=== PATIENT | male | born 1955 | race African-American/Black ===

== ENCOUNTER 2016-07-21 20:32 | Observation (INO) | payer MEDICARE ==
--- NOTE | ~2016-07-21 | DS ---
Discharge Summary [facility] [address] [place]. [address] NAME: MAR VALDIVIA : 57 STATUS : DIS Delia PAT#: [id number] AGE: 60 ADM/REG DATE : 07/21/16 MR#: [id number] REPORT SERV DATE: 07/24/16 DICTATED BY: DATE: REPORT STATUS : Draft TRANSCRIBED BY: MODL DATE: 07/22/16 ADMISSION DATE: 07/21/2016 DISCHARGE DATE: 07/22/2016 DISCHARGE DIAGNOSES: 1. Chronic obstructive pulmonary disease with chronic hypoxia suspicious for acute exacerbation. 2. Obstructive sleep apnea, chronic. 3. Anxiety, chronic. CONSULTATIONS: None. PERTINENT TESTS AND PROCEDURES: 1. Chest x-ray, 07/21/2016, impression: Stable COPD changes in the lungs. No airspace consolidation, pleural fluid collection, or pneumothorax is seen. 2. Chest x-ray, 07/22/2016, impression: Hyperinflated lungs. No segmental consolidation, effusion, or pneumothorax. Severe COPD without focal airspace disease. HOSPITAL COURSE: Please refer to history and physical dictated by Dr. Mikie Finnegan on 07/22/2016 for complete details pertaining to the patient's initial presentation upon admission and health history. Briefly, the patient is a 60-year-old male who is under the outpatient care of Dr. Turner, [employer] in [place], [place], and Dr. Monteiro, [employer] at [facility], for treatment of chronic obstructive pulmonary disease with chronic hypoxic respiratory failure. The patient presented to the emergency department on 07/21/2016 with complaints of increasing shortness of breath from baseline. The patient also complained of increased mucous production. The patient was admitted for evaluation and treatment of chronic obstructive pulmonary disease exacerbation in the setting of chronic hypoxic respiratory failure. 1. COPD with chronic respiratory failure/hypoxia. The patient was admitted for concern of acute exacerbation secondary to complaints the patient's complaints of increased mucous production and increased shortness of breath from baseline. The patient was started on doxycycline 100 mg p.o. twice daily in addition to methylprednisolone 20 mg IV twice daily. Home medications to Advair, albuterol, metered dose inhaler, Proventil, Mucinex, Spiriva, and Singulair were continued. DuoNeb every six hours scheduled was also added. The patient was also provided with a CPAP machine for nighttime use. The patient responded well to these initial treatments to include nebulizers, steroids, antibiotics, and CPAP. The patient will be discharged home with a prescription for doxycycline for four more days to complete a five-day course of antibiotic therapy, and a prescription for prednisone 40 mg p.o. daily x5 days and then resumption of chronic home dose of prednisone 2.5 mg p.o. daily. The patient is also seen by Dr. Monteiro, [employer] at [facility] in [place]. The patient's next visit is scheduled for this , 07/24/2016. Per patient report, he is currently being evaluated for Discharge Summary [address] [address] NAME: MAR VALDIVIA : 57 STATUS : DIS Delia PAT#: [id number] AGE: 60 ADM/REG DATE : 07/21/16 MR#: [id number] REPORT SERV DATE: 07/24/16 DICTATED BY: DATE: REPORT STATUS : Draft TRANSCRIBED BY: SHARAD DATE: 07/22/16 possible lung transplantation in the future. 2. Obstructive sleep apnea, chronic. The patient is a chronic CPAP dependent. Per patient report, his CPAP machine malfunctioned 24 hours prior to this admission. The patient believes that this may have contributed to his respiratory distress. Social Work was consulted regarding need for CPAP repair before discharge home. The patient's family assisted with this need and delivered CPAP to home health provider. Required repairs were made and CPAP was delivered back to hospital prior to discharge to ensure it was working to the patient's satisfaction. 3. Chronic anxiety. Continue home dose of BuSpar, Lexapro, and Ativan. DISCHARGE CONDITION: At the time of discharge, the patient is hemodynamically stable and he has returned to baseline state of health. DISCHARGE DIET: Regular diet as tolerated. DISCHARGE MEDICATIONS: 1. Coreg 3.125 mg tablet p.o. twice daily. 2. Vitamin D 2000 units p.o. every morning. 3. Doxycycline 100 mg p.o. twice daily x4 days to complete a five-day total therapy. 4. Lexapro 20 mg tablet p.o. daily. 5. Flonase nasal spray one spray both nostrils p.o. daily. 6. Guaifenesin 400 mg tablet p.o. four times daily as needed. This medication to be scheduled x7 days and then resume p.r.n. 7. Singulair 10 mg tablet p.o. daily. 8. Prilosec 40 mg tablet p.o. daily. 9. Potassium chloride 10 mEq p.o. daily. 10.Demadex 10 mg tablet p.o. daily. 11.Prednisone 40 mg tablet p.o. x5 days and resume home chronic dose of prednisone 2.5 mg tablet p.o. daily. 12.ProAir metered-dose inhaler 1-2 puffs inhaled every four hours as needed. 13.Advair 1 puff inhaled twice daily. 14.Tylenol 325 mg tablet, take 650 mg every four hours as needed. 15.BuSpar 5 to 10 mg p.o. twice daily as needed for anxiety. 16.Colace 100 mg p.o. twice daily as needed. 17.Ativan 1 mg tablet p.o. daily as needed for anxiety. 18.Proventil 1 nebulizer treatment four times daily as needed. 19.Spiriva 1 puff inhaled twice daily. RN to verify b.i.d. dosing with the patient before discharge. DISCHARGE INSTRUCTIONS: 1. Follow up with Dr. Monteiro of Pulmonology at [facility] in [place] 07/24/2016 as scheduled. 2. Follow up with Dr. Turner of Pulmonology [place], [place], per routine schedule. 3. The patient was instructed to take all home medications as prescribed and to resume nightly use of CPAP without interruption. The patient was instructed to return to the ER for any acute onset of fever 100.4 or greater lasting more than one hour increased Discharge Summary [address] [address] NAME: MAR VALDIVIA : 57 STATUS : DIS Delia PAT#: [id number] AGE: 60 ADM/REG DATE : 07/21/16 MR#: [id number] REPORT SERV DATE: 07/24/16 DICTATED BY: DATE: REPORT STATUS : Draft TRANSCRIBED BY: MODL DATE: 07/22/16 shortness of breath from baseline chills, sweats, syncopal, near syncopal episodes, chest pain, or any other health concerns that are deviations from his baseline status at the time of this discharge. Primary care physician is Dr. Velasco. PRIMARY PULMONOLOGISTS: 1. Dr. Monteiro of [facility]. 2. Dr. Turner of [place], [place]. HEMAH/WANDYL Angela Burton NP-C / [id number] CC: MD Arvin Barry M.D. Michael T Czarnecki, M.D. Ivan Robbins, MD
--- NOTE | ~2016-07-21 | HP ---
History And Physical [address] [address] NAME: MAR VALDIVIA : 57 STATUS : ADM Delia PAT#: [id number] AGE: 60 ADM/REG DATE : 07/21/16 MR#: [id number] REPORT SERV DATE: 07/22/16 DICTATED BY: RODRIGO FINNEGAN DATE: 07/22/16 REPORT STATUS : Draft TRANSCRIBED BY: MODL DATE: 07/22/16 DATE OF ADMISSION: 07/21/2016 CHIEF COMPLAINT: This 60-year-old male presenting with shortness of breath. HISTORY OF PRESENTING ILLNESS: The patient's history was obtained through careful interview with the patient, coupled with review of [facility] and medical records. The patient states that for several days, he has been having increasing shortness of breath. He finally went to his primary care physician earlier on the day of admission. By the night time, the patient was feeling "distress" from his breathing problems and developed what he describes as a "panic attack." He describes a cough, increasingly productive of a thick mucus. He describes chest discomfort, a sharp quality at the base of his lungs, 5/10 severity. He also has a sore throat. He has had cold feet, lightheadedness. No fevers or chills. Also of concern, the patient states that his CPAP inexplicably stopped working on the night leading up to admission, which he thinks contributed to his "panic attack." REVIEW OF SYSTEMS: Otherwise, complete review of systems was obtained and was negative. PAST MEDICAL HISTORY: 1. COPD oxygen dependent. 2. Pneumonia. 3. Obstructive sleep apnea, on CPAP. 4. Coronary artery disease, status post stent placement. 5. Hypertension. 6. Pulmonary hypertension. PAST SURGICAL HISTORY: 1. Right hip surgery. 2. Hernia repair. 3. Left orchiectomy. ALLERGIES: NEOSPORIN. SOCIAL HISTORY: Quit smoking. Continues to drink alcohol rarely and socially. He is single and lives alone. . Has one daughter, who lives in [place]. He has grandchildren. He has a sister, who lives locally. 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 He still History And Physical [address] 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 FAMILY HISTORY: Diabetes and heart disease. CURRENT MEDICATIONS: Albuterol inhaler, BuSpar 5 to 10 mg p.o. b.i.d. as needed, Coreg 3.125 mg p.o. b.i.d., vitamin D, Lexapro 20 mg daily, Flonase, Advair inhaled twice a day, guaifenesin, Ativan 1 mg p.o. daily as needed, Singulair 10 mg daily, Prilosec 40 mg daily, potassium 10 mEq p.o. daily, prednisone 2.5 mg p.o. daily maintenance, Spiriva inhaled p.o. b.i.d., and Demadex 10 mg p.o. daily. PHYSICAL EXAMINATION: VITAL SIGNS: Temperature 97.9, pulse 95, blood pressure 106/72, respiratory rate 20, and O2 saturation 98% on 6 L nasal cannula. GENERAL: An ill-appearing male, in evidence of distress secondary to shortness of breath. HEENT: Pupils equal, round, and reactive to light. No conjunctival pallor. No scleral icterus. Nares are patent. Oropharynx is clear of obstruction. Moist mucous membranes. NECK: Trachea midline. No thyromegaly. LYMPH: No cervical lymphadenopathy. No supraclavicular lymphadenopathy. RESPIRATORY: Inspiratory and expiratory wheezes. A very "tight" exam with prolonged expiratory phase. No focal egophony. No dullness to percussion to suggest effusions. The patient has a labored respiratory effort. CARDIOVASCULAR: Regular rate and rhythm. No murmurs, rubs, or gallops. EXTREMITY: No extremity edema is appreciated. ABDOMEN: Soft, nontender, nondistended. Normal bowel sounds auscultated throughout. No organomegaly. DERMATOLOGICAL: Warm and dry extremities. No pallor. No cyanosis. PSYCHIATRIC: Normal affect. Good mood. Alert and oriented x3. LABORATORY DATA: ABG demonstrates pH of 7.34, pCO2 of 61, PaO2 of 94, and a bicarb of 33. White blood cell count 7.3, hemoglobin 14, hematocrit 42, and platelets 264. Sodium 139, potassium 3.7, chloride 100, bicarb 34, BUN 10, creatinine 0.73, and glucose 96. Troponin negative. INR 1.0. STUDIES: 1. Chest x-ray by my own evaluation shows chronic COPD changes, but no acute abnormality. 2. EKG by my own evaluation shows sinus rhythm, left axis deviation. ASSESSMENT AND PLAN: 1. Chronic obstructive pulmonary disease exacerbation. Placed on IV Solu-Medrol, duo nebulizers, doxycycline. 2. Obstructive sleep apnea. Continue CPAP nightly including tonight. 3. Pulmonary hypertension. Initially, I have made the patient in observation status as he seems to be recovering well to initial treatment with duo nebulizers and steroids and hopefully, he can respond within about 24 hour period of time. History And Physical [address] [address] NAME: MAR VALDIVIA : 57 STATUS : ADM Delia PAT#: [id number] AGE: 60 ADM/REG DATE : 07/21/16 MR#: [id number] REPORT SERV DATE: 07/22/16 DICTATED BY: RODRIGO FINNEGAN DATE: 07/22/16 REPORT STATUS : Draft TRANSCRIBED BY: SHARAD DATE: 07/22/16 ELLEN/SHARAD Rodrigo Finnegan M.D. / [id number] CC: MD Arvin Barry M.D.
[2016-07-21 19:39] LABS: BE (BASE EXCESS) 5.1 MEQ/L (0 +/- 2.5); CARBOXYHEMOGLOBIN 1.5 % (0-3); HCO3 (ACTUAL BICARBONATE) 32.8 MEQ/L (23-27); HEMOBLOGIN CONTENT 14.7 G/DL (14-18); INSTRUMENT SERIAL # 8087; METHEMOGLOBIN 0.4 % (0-3); PCO2 (CO2 TENSION) 61 MMHG (35-45); PO2 (O2 TENSION) 95 MMHG (79-93); pH 7.35 (7.37-7.43)
[2016-07-21 19:40] LABS: DEVICE NC; O2 CONTENT 19.8 VOL% (18-24); SAMPLE Arterial
[2016-07-21 20:06] LABS: BASOPHILS 0.1 %; BASOPHILS ABSOLUTE 0.01 10/3/uL (0.0-0.16); EOSINOPHILS 0.5 %; EOSINOPHILS ABSOLUTE 0.04 10/3/uL (0.0-0.53); ER CBC TAT 0 Hrs 10 Mins; HEMATOCRIT 42.4 % (40.0-51.0); HEMOGLOBIN 14.1 g/dL (13.6-17.8); IMMATURE GRANULOCYTES 0.1 %; IMMATURE GRANULOCYTES ABSOLUTE 0.01 10/3/uL (0.0-0.11); LYMPHOCYTES 11.4 %; LYMPHOCYTES ABSOLUTE 0.83 10/3/uL (0.67-4.30); MEAN CORPUS HGB CONC 33.3 g/dL (32.0-36.0); MEAN CORPUSCULAR HEMOGLOB 29.7 pg (26.0-34.0); MEAN CORPUSCULAR VOLUME 89.3 fL (80-100); MEAN PLATELET VOLUME 9.3 fL (9.2-13.0); MONOCYTES 1.8 %; MONOCYTES ABSOLUTE 0.13 10/3/uL (0.21-1.20); NEUTROPHILS 86.1 %; NEUTROPHILS ABSOLUTE 6.27 10/3/uL (2.02-8.40); RBC DISTRIBUTION WIDTH 12.2 % (12.0-16.0); RED CELL COUNT 4.75 10/6/uL (4.7-6.1); WHITE BLOOD CELLS 7.3 10/3/uL (4.5-10.5)
[2016-07-21 20:08] LABS: MANUAL DIFF NO %; PLATELET COUNT 264 10/3/uL (150-400)
[2016-07-21 20:20] LABS: PARTIAL THROMBO TIME 30.8 SEC (22.5-37.2); PROTIME (NOT ORD) 12.9 SEC (12.0-14.5)
[2016-07-21 20:22] LABS: CHEST PAIN PROFILE TAT 0 Hrs 26 Mins; CHLORIDE, SERUM 100 MMOL/L (96-112); CO2 (CARBON DIOXIDE) 34 MMOL/L (24-34); CREATININE 0.73 MG/DL (0.70-1.30); GFR AFRICAN AMERICAN 118 ML/MIN (>=60); GFR NON AFRICAN AMERICAN 102 ML/MIN (>=60); GLUCOSE, SERUM 96 MG/DL (60-99); POTASSIUM, SERUM 3.7 MMOL/L (3.5-5.3); SODIUM, SERUM 139 MMOL/L (135-148); TROPONIN I <0.02 NG/ML (<0.05)
[2016-07-21 20:26] LABS: BUN (BLOOD UREA NITROGEN) 10 MG/DL (6-23)
[~2016-07-21 20:32] MED LIST: ACET500CAP PO; ACETSUP650 PR; ADOXA100 MG PO; ADVAIR INH; ADVAIR250 INH; ASAB PO; ATV1 PO; BEN25 PO; CENTRUM TAB1 TAB PO; CITRACAL PO; COREG3 PO; COUMADIN10 MG PO; DEMA10T PO; DYMISTA NASAL S23 GM NAS; GAVISCO2 PO; HALF81 PO; HUMI PO; KLOR-CON 1010 MEQ PO; KLOR-CON M1010 MEQ PO; LEVAQUIN750 MG PO; LEXAPRO10 PO; LIPITOR40 PO; MELA3 PO; MUCINEX1200 MG PO; MUCINEX600 MG PO; MULTIVIT/MIN PO; NASACORTAQ NAS; NORCO1 TA1 PO; NORCO1 TAB PO; OMNICEF300 PO; P10 PO; P20 PO; P5 PO; PR25 PO; PREDNISONE PO; PREDNISONE2.5 MG PO; PRILOSEC40 MG PO; PROAIR HFA INH; PROTONIX PO; PROVENTSOL INH; Prednisone; SENTAB PO; SINGULAIR1 PO; SPIRIVA INH; STERAPRED DS10 MG; STERAPRED DS10 MG PO; STERIOD INJECTION IM; SYMBICORT 160/41 INH INH; T PO; TORATAB PO; TRIMETHOPRIM; V5 PO; VITAMIN D PO; WELLXL300 PO; ZANTAC 150 PO; ZYRTEC ALLGY10 MG PO; [UNRECOGNIZED DRUG - OTHER]
[2016-07-21] MEDS ORDERED: SINGULAIR1 PO (21:20)
[2016-07-21] MEDS ORDERED: BUSPAR5 PO (21:20)
[2016-07-21] MEDS ORDERED: ATV1 PO (21:26)
[2016-07-21] MEDS ORDERED: LEXAPRO20 PO (21:26)
[2016-07-21] MEDS ORDERED: COREG3 PO (21:26)
[2016-07-21] MEDS ORDERED: PROVENTSOL INH (21:27)
[2016-07-21] MEDS ORDERED: SPIRIVA RESPIMAT INH (21:27)
[2016-07-21] MEDS ORDERED: PROAIR HFA INH (21:27)
[2016-07-21] MEDS ORDERED: ADVAIR INH (21:28)
[2016-07-21] MEDS ORDERED: KDUR10 PO (21:28)
[2016-07-21] MEDS ORDERED: DEMA10T PO (21:28)
[2016-07-21] MEDS ORDERED: PREDNISONE2.5 MG PO (21:29)
[2016-07-21] MEDS ORDERED: VITAMIN D2000 UNIT PO (21:29)
[2016-07-21] MEDS ORDERED: FENESIN IR400 MG PO (21:30)
[2016-07-21] MEDS ORDERED: FLONASE NAS (21:30)
[2016-07-21] MEDS ORDERED: PRILOSEC40 MG PO (21:30)
[2016-07-22 00:25] LABS: INFLUENZA A SCREEN NEGATIVE (NEGATIVE); INFLUENZA B SCREEN NEGATIVE (NEGATIVE)
[2016-07-22 05:51] LABS: BASOPHILS 0.2 %; BASOPHILS ABSOLUTE 0.01 10/3/uL (0.0-0.16); EOSINOPHILS 0 %; HEMATOCRIT 42.8 % (40.0-51.0); HEMOGLOBIN 14.3 g/dL (13.6-17.8); IMMATURE GRANULOCYTES 0.2 %; IMMATURE GRANULOCYTES ABSOLUTE 0.01 10/3/uL (0.0-0.11); LYMPHOCYTES 14.2 %; LYMPHOCYTES ABSOLUTE 0.92 10/3/uL (0.67-4.30); MEAN CORPUS HGB CONC 33.4 g/dL (32.0-36.0); MEAN CORPUSCULAR VOLUME 89.7 fL (80-100); MEAN PLATELET VOLUME 9.6 fL (9.2-13.0); MONOCYTES 0.6 %; MONOCYTES ABSOLUTE 0.04 10/3/uL (0.21-1.20); NEUTROPHILS 84.8 %; NEUTROPHILS ABSOLUTE 5.49 10/3/uL (2.02-8.40); PLATELET COUNT 298 10/3/uL (150-400); RBC DISTRIBUTION WIDTH 12.1 % (12.0-16.0); RED CELL COUNT 4.77 10/6/uL (4.7-6.1); WHITE BLOOD CELLS 6.5 10/3/uL (4.5-10.5)
[2016-07-22 05:53] LABS: MANUAL DIFF NO %
[2016-07-22 05:56] LABS: PARTIAL THROMBO TIME 30.8 SEC (22.5-37.2); PROTIME (NOT ORD) 13.2 SEC (12.0-14.5)
[2016-07-22 06:26] LABS: CALCIUM, SERUM 8.9 MG/DL (8.5-10.4); CHLORIDE, SERUM 101 MMOL/L (96-112); CO2 (CARBON DIOXIDE) 30 MMOL/L (24-34); CREATININE 0.74 MG/DL (0.70-1.30); GFR AFRICAN AMERICAN 117 ML/MIN (>=60); GFR NON AFRICAN AMERICAN 101 ML/MIN (>=60); SGOT(AST) 16 U/L (5-40); SGPT(ALT) 18 U/L (5-65); SODIUM, SERUM 141 MMOL/L (135-148); TOTAL PROTEIN 6.7 G/DL (6.0-8.5); TROPONIN I <0.02 NG/ML (<0.05)
[2016-07-22 06:27] LABS: A/G RATIO 1.3 (0.7-1.9); ALBUMIN 3.8 G/DL (3.5-5.0); ALKALINE PHOSPHATASE 55 U/L (45-117); BUN (BLOOD UREA NITROGEN) 16 MG/DL (6-23); GLOBULIN 2.9 G/DL (2.5-4.1); GLUCOSE, SERUM 121 MG/DL (60-99); POTASSIUM, SERUM 4.5 MMOL/L (3.5-5.3); TOTAL BILIRUBIN 0.9 MG/DL (0-1.2); ULTRASENSITIVE TSH 0.203 MCIU/ML (0.358-3.740)
[2016-07-22 07:16] LABS: PROCALCITONIN <0.05 ng/mL (<0.5)
[2016-07-22] MEDS ORDERED: VIBRATAB100 MG PO (18:49)
[2016-07-22] MEDS ORDERED: P20 PO (18:50)
[2016-07-22] MEDS ORDERED: T PO (19:02)
[2016-07-22] MEDS ORDERED: DSS PO (19:03)
[2017-01-15] MEDS ORDERED: ASAB PO (03:07)
[2017-01-15] MEDS ORDERED: COREG3 PO (03:10)
[2017-01-15] MEDS ORDERED: LEXAPRO20 PEG (03:10)
[2017-01-15] MEDS ORDERED: ZYRTEC ALLGY10 MG PO (03:11)
[2017-01-15] MEDS ORDERED: SILTUSSIN100 MG/5 M PO (03:11)
[2017-01-15] MEDS ORDERED: FLORASTOR250 MG PO (03:12)
[2017-01-15] MEDS ORDERED: MIRALAX POWDER1 PKT PO (03:12)
[2017-01-15] MEDS ORDERED: K-TABS10 MEQ PO (03:12)
[2017-01-15] MEDS ORDERED: PROTONIX PO (03:12)
[2017-01-15] MEDS ORDERED: DEMA10T PO (03:13)
[2017-01-15] MEDS ORDERED: CYANO1000T PO (03:13)
[2017-01-15] MEDS ORDERED: FLONASE NAS (03:13)
[2017-01-15] MEDS ORDERED: P10 PO (03:13)
[2017-01-15] MEDS ORDERED: MULTIVIT/MIN PO (03:14)
[2017-01-15] MEDS ORDERED: SPIRIVA INH (03:15)
[2017-01-15] MEDS ORDERED: LEVAQUIN750 MG PO (03:15)
[2017-01-15] MEDS ORDERED: DULERA 200 MCG/13 GM INH (03:16)
[2017-01-15] MEDS ORDERED: DUONEB INH (03:16)
[2017-01-15] MEDS ORDERED: NASACORTAQ NAS (03:20)
== END 2016-07-22 21:26 | disposition home or self-care (01) ==
LOC: ER 20:32 → 4EA 21:25
PROVIDERS: Hospitalist; Specialist
DX: J44.9 Chronic obstructive pulmonary disease, unspecified (principal); G47.33 Obstructive sleep apnea (adult) (pediatric); I27.2 Other secondary pulmonary hypertension; J18.9 Pneumonia, unspecified organism; I25.10 Atherosclerotic heart disease of native coronary artery without angina pectoris; F41.9 Anxiety disorder, unspecified; I10 Essential (primary) hypertension; Z23 Encounter for immunization; Z98.890 Other specified postprocedural states; Z90.79 Acquired absence of other genital organ(s); Z88.1 Allergy status to other antibiotic agents; Z79.891 Long term (current) use of opiate analgesic; Z82.49 Family history of ischemic heart disease and other diseases of the circulatory system; Z83.3 Family history of diabetes mellitus; Z79.899 Other long term (current) drug therapy; Z79.52 Long term (current) use of systemic steroids; Z96.641 Presence of right artificial hip joint
CPT/HCPCS: 71010; 80048; 80053; 82805; 83735; 83880; 84145; 84443; 84484; 85025; 85610; 85730; 86710; 87449; 87804; 90686; 93005; 94640; 94660; 96372; 96374; 96376; 99285; A9270-GY; G0008; G0378; J2920

== ENCOUNTER 2016-12-05 15:21 | Inpatient (IN) | payer MEDICARE, OTHER ==
--- NOTE | ~2016-12-05 | DS ---
Discharge Summary [facility] [address] [place]. [address] NAME: MAR VALDIVIA : 57 STATUS : DIS IN PAT#: [id number] AGE: 61 ADM/REG DATE : 12/05/16 MR#: [id number] REPORT SERV DATE: 12/20/16 DICTATED BY: TOD ALBARADO DATE: 12/19/16 REPORT STATUS : Draft TRANSCRIBED BY: MODL DATE: 12/19/16 ADMISSION DATE: 12/05/2016 DISCHARGE DATE: 12/19/2016 REASON FOR ADMISSION: This is a 61-year-old male with end-stage COPD who was admitted for shortness of breath. DISCHARGE DIAGNOSES: 1. End-stage chronic obstructive pulmonary disease dependent on trilogy ventilation. 2. Pulmonary hypertension. 3. Coronary artery disease, status post percutaneous coronary intervention. HOSPITAL COURSE: Please see admission H and P from Dr. Ghulam Kahn on 12/06/2016 and interim discharge summary from Dr. Ghulam Kahn on 12/08/2016 and interim discharge summary from Dr. Arvin Hernandez on 12/14/2016 for full details on admission and hospital stay. I picked up the patient on the 12/17/2016. The patient was awaiting rehab placement, as he is trying to get on the transplant list at [facility] as he is seeing Dr. Andrade Monteiro there, but they want him to improve his physical capacity where he can walk 750 feet, and so therefore, it was felt that the only way for him to accomplish that is to go to inpatient rehab. Several denials took place as the patient is hardly able to come off his trilogy ventilation machine for very long periods of time at all. However, [facility] was willing to take the patient and worked out a one time contract with his [facility] Insurance. DISCHARGE CONDITION: Stable. DISCHARGE MEDICATIONS: 1. Flonase one spray per nostril daily. 2. Symbicort 160/4.5 two puffs inhaled b.i.d. 3. Spiriva one capsule inhaled daily. 4. Coreg 3.125 mg p.o. b.i.d. 5. Torsemide 10 mg p.o. daily. 6. Potassium chloride 10 mEq p.o. b.i.d. 7. Mucinex 600 mg p.o. b.i.d. 8. Prednisone 10 mg p.o. daily. 9. Ativan 0.5 mg p.o. q.6 hours p.r.n. 10.Hydrocodone 5/325 one tablet p.o. q.6 hours p.r.n. 11.Zyrtec 10 mg p.o. daily. 12.Lexapro 20 mg p.o. daily. 13.BuSpar 10 mg p.o. t.i.d. 14.Omeprazole 40 mg p.o. daily. 15.Aspirin 81 mg p.o. daily. DISCHARGE PLAN: The patient is discharged to [facility] for rehab to attempt to increase the physical stamina, will be able to walk 150 feet and get on lung transplant list at [facility]. The patient to follow up with his primary care after rehab Discharge Summary [address] [place]. [address] NAME: MAR VALDIVIA : 57 STATUS : DIS IN PAT#: [id number] AGE: 61 ADM/REG DATE : 12/05/16 MR#: [id number] REPORT SERV DATE: 12/20/16 DICTATED BY: TOD ALBARADO DATE: 12/19/16 REPORT STATUS : Draft TRANSCRIBED BY: SHARAD DATE: 12/19/16 and follow up with Dr. Andrade Monteiro at [facility]. DICTATED BY: Tod Albarado APN TDR/SHARAD Tod Albarado APN / [id number] CC: Domenica Alegria M.D.
--- NOTE | ~2016-12-05 | HP ---
History And Physical [facility] [address] [facility] [place]. [address] NAME: MAR VALDIVIA : 57 STATUS : ADM IN PAT#: [id number] AGE: 61 ADM/REG DATE : 12/05/16 MR#: [id number] REPORT SERV DATE: 12/06/16 DICTATED BY: GHULAM KAHN DATE: 12/05/16 REPORT STATUS : Draft TRANSCRIBED BY: MODL DATE: 12/05/16 DATE OF ADMISSION: 12/05/2016 CHIEF COMPLAINT: Shortness of breath. HISTORY OF PRESENT ILLNESS: This is a 61-year-old gentleman with history of end-stage COPD, presenting with a shortness of breath. The patient reports that at baseline, he is on 3.5 L of oxygen at home. With activity, the patient does need to go up on his oxygen as much as 5 to 10 L occasionally. The patient is currently being evaluated for lung transplantation at [facility] and the plan is to get a lung transplant within a year or so. For that, the patient is currently undergoing cardiac rehab. After cardiac rehab today, the patient developed more acute shortness of breath that did not improve spontaneously with time and thus he decided to come to the ER for further evaluation and care. In the ER, the patient was found to be afebrile and hemodynamically stable, although the patient was slightly tachycardic and tachypneic. The patient did require 5 L of oxygen per nasal cannula to maintain adequate oxygen saturations. Initial lab evaluation was all very benign and chest x-ray was also very benign. Internal Medicine consultation was requested for admission of the patient for further evaluation and care. REVIEW OF SYSTEMS: The patient denies any fevers or chills. Also, 14-point review of systems reviewed and negative other than mentioned above. MEDICATIONS: 1. Flonase nasal spray every morning to each nostril. 2. Atrovent one nebulizer inhaled four times daily p.r.n. 3. ProAir two puffs inhaled three times daily p.r.n. 4. Symbicort two puffs inhaled twice daily. 5. Spiriva one capsule inhaled every morning. 6. Coreg 3.125 mg p.o. b.i.d. 7. Demadex 10 mg p.o. q.a.m. 8. Klor-Con 10 mEq p.o. b.i.d. 9. Mucinex 600 mg p.o. three times daily p.r.n. 10.Prilosec 40 mg p.o. q.a.m. 11.Prednisone 5 mg p.o. daily. 12.BuSpar 10 mg p.o. three times daily p.r.n. 13.Lexapro 20 mg p.o. daily p.r.n. 14.Zyrtec 10 mg p.o. q.a.m. 15.Aspirin 81 mg p.o. daily. 16.Vitamin B12 one tablet p.o. daily. 17.Aluminum hydroxide one tablet p.o. twice daily p.r.n. for GERD. ALLERGIES: 1. NEOMYCIN SULFATE. 2. BACITRACIN. History And Physical [address] [address] NAME: MAR VALDIVIA : 57 STATUS : ADM IN [facility]#: [id number] AGE: 61 ADM/REG DATE : 12/05/16 MR#: [id number] REPORT SERV DATE: 12/06/16 DICTATED BY: GHULAM KAHN DATE: 12/05/16 REPORT STATUS : Draft TRANSCRIBED BY: SHARAD DATE: 12/05/16 3. POLYMYXIN B. PAST MEDICAL HISTORY: 1. End-stage COPD, the patient is on 3.5 L of oxygen at baseline. The patient is currently being evaluated for lung transplantation at [facility]. 2. Obstructive sleep apnea, on CPAP. 3. Coronary artery disease. 4. Hypertension. 5. Pulmonary hypertension. PAST SURGICAL HISTORY: 1. Right hip surgery. 2. Hernia repair. 3. Left orchiectomy. FAMILY HISTORY: 1. Diabetes. 2. Heart diseases. SOCIAL HISTORY: 1. The patient does not smoke. 2. The patient consumes alcohol on rare occasion. The patient otherwise does not use any illicit drugs. The patient is single, , and lives alone. PHYSICAL EXAMINATION: VITAL SIGNS: Temperature 98.2, blood pressure 128/81, pulse 102, respiratory rate is 22, saturating 93% on 5 L of oxygen per nasal cannula. NEUROLOGIC: The patient is alert and oriented x3 with no focal neurologic deficits. GENERAL: The patient is awake, does not appear to be in acute distress, and he is cooperative. NECK: No JVD. No lymphadenopathy. Normal thyroid. CHEST: No midline sternotomy scar and no tenderness to palpation. LUNGS: The patient is not moving much air at all and he is not even wheezing. The patient is on 5 L of oxygen, and with that, the patient appears comfortable at rest, however, the patient is unable to complete a full sentence even on the 5 L of oxygen without getting short of breath. CARDIOVASCULAR: The patient is slightly tachycardic. Otherwise, no murmurs, rubs, or gallops, and PMI is nondisplaced. ABDOMEN: Soft, nontender, with active bowel sounds and no organomegaly. EXTREMITIES: No edema. Normal distal pulses. No calf tenderness. SKIN: Clean, dry, warm, and intact. LABORATORY DATA: Sodium is 144, potassium 4.0, chloride 107, BUN 8, creatinine 0.87, glucose 83, calcium 8.7, magnesium 2.5. White blood cell count is 7.4, hemoglobin 14.5, platelets 267. INR is 1.0. Troponin is less than 0.02. Chest x-ray is personally interpreted and it shows severe COPD changes, but otherwise History And Physical [address] [address] NAME: MAR VALDIVIA : 57 STATUS : ADM IN [facility]#: [id number] AGE: 61 ADM/REG DATE : 12/05/16 MR#: [id number] REPORT SERV DATE: 12/06/16 DICTATED BY: GHULAM KAHN DATE: 12/05/16 REPORT STATUS : Draft TRANSCRIBED BY: MODBrianna DATE: 12/05/16 nonacute. ASSESSMENT: This is a 61-year-old gentleman with history of end-stage chronic obstructive pulmonary disease, presenting with a chronic obstructive pulmonary disease exacerbation. 1. Chronic obstructive pulmonary disease exacerbation. 2. Acute on chronic hypoxic respiratory failure, the patient is on 3.5 L at baseline. 3. Coronary artery disease. 4. Pulmonary hypertension. 5. Hypertension. 6. Obstructive sleep apnea. PLAN: My plan is to admit the patient under telemetry monitoring. The patient will be treated with oxygen support and bronchodilator therapy. The patient will also be treated with high-dose IV steroids as well as antibiotics. I will have a low threshold to get a digital analytics manager help. Otherwise, for the rest of stable past medical conditions, including hypertension, coronary artery disease, pulmonary hypertension, et al., I will continue home medications. Standard DVT prophylaxis. The patient is full code at this time. YSC/MODL Ghulam Kahn MD / [id number] CC: MD Arvin Valdovinos M.D.
--- NOTE | ~2016-12-05 | CN ---
Consultation Report [facility] [address] [place]. [address] NAME: MAR LONGORIA : 57 STATUS : ADM IN PAT#: [id number] AGE: 61 ADM/REG DATE : 12/05/16 MR#: [id number] REPORT SERV DATE: 12/09/16 DICTATED BY: LALY TORRES DATE: 12/09/16 REPORT STATUS : Draft TRANSCRIBED BY: MODL DATE: 12/09/16 PULMONARY CONSULTATION DATE OF CONSULTATION: 12/09/2016 REASON FOR CONSULTATION: Evaluation of therapeutic regimen for end-stage COPD and emphysema. HISTORY OF PRESENT ILLNESS: Mr. Longoria is a 61-year-old black male, former smoker, with emphysema, end-stage COPD, and hypoxia with resultant chronic respiratory failure, and associated dependence on trilogy home ventilator, who is on the [facility] transplant list. He was admitted after a recent session of pulmonary rehabilitation that resulted in marked increase in shortness of breath from his baseline as well as an increased oxygen requirement from his usual 3.5 L/minute supplemental oxygen to 5 L/minute supplemental oxygen. He has been treated for COPD exacerbation with increased doses systemic steroids, bronchodilators, inhaled steroids, and doxycycline. Pulmonary has been consulted for evaluation of the patient's therapeutic regimen. It is notable that he has been responding well to his inpatient therapy, and he feels his breathing is currently at baseline. He describes his baseline as significant shortness of breath throughout the day. He uses his trilogy home ventilator approximately 24 hours per day, but takes it off to bathe and eat. He reports compliance with all of his medications including bronchodilators, prednisone 5 mg daily, inhaled steroids, and diuretics. He also uses supplemental oxygen at a flow rate of 3.5 L/minute 24 hours per day. He has been participating in pulmonary rehabilitation as an outpatient due to requirements of the pretransplant regimen per [facility]. He states he has had 14 of planned 32 treatments thus far. He is followed locally by outpatient academic services coordinator, Dr. Jonathan Turner. PAST MEDICAL HISTORY: 1. End-stage COPD as noted above. 2. Emphysema. 3. Former smoker. 4. Chronic hypoxia-on supplemental oxygen at a flow rate of 3 L/minute 24 hours per day. 5. Chronic respiratory failure necessitating aggressive home ventilation with trilogy. 6. Ongoing evaluation for lung transplantation at [facility]. 7. Former smoker. 8. Environmental allergies. 9. Pulmonary hypertension. 10.Hypertension. 11.Obstructive sleep apnea per chart though the patient denies. 12.Coronary artery disease. 13.Previous right hip surgery. 14.Inguinal hernia repair. 15.Left orchidectomy-cause unclear. 16.Hyperlipidemia. Consultation Report [address] [place]. [address] NAME: MAR LONGORIA : 57 STATUS : ADM IN PAT#: [id number] AGE: 61 ADM/REG DATE : 12/05/16 MR#: [id number] REPORT SERV DATE: 12/09/16 DICTATED BY: LALY TORRES DATE: 12/09/16 REPORT STATUS : Draft TRANSCRIBED BY: SHARAD DATE: 12/09/16 17.Anxiety/depression. 18.Coronary artery stent. FAMILY HISTORY: He denies a family history of pulmonary diseases. SOCIAL HISTORY: He smoked one pack of cigarettes per day for 25 years and quit just more than one year ago. He denies current ethanol intake. He denies chewing tobacco. 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 He has a remote history of smoking marijuana and cocaine, but quit in the . He is unmarried and has three children. MEDICATIONS: Outpatient and inpatient medications were reviewed and are as documented in the record. His outpatient pulmonary medications were Symbicort 160/4.5 mcg two puffs twice daily and Spiriva 18 mcg once daily. He is also on chronic prednisone 5 mg once daily. He takes Flonase and Atrovent nasal spray for his environmental allergies and nasal congestion. ALLERGIES: NEOMYCIN SULFATE, BACITRACIN, AND POLYMYXIN B. REVIEW OF SYSTEMS: A 10-point system review was conducted and is remarkable for the symptoms as described in the history of present illness. He denies GERD symptoms or symptoms of obstructive sleep apnea. PHYSICAL EXAMINATION: VITAL SIGNS: Temperature 97.8 degrees, heart rate 87, blood pressure 129/81, respiratory rate 20, and oxygen saturation 96% on supplemental oxygen at a flow rate of 3.5 L/minute. GENERAL: Pleasant black male. Alert, oriented, no apparent distress. Sitting up in bed. Wearing his nasal cannula but not using his trilogy device. HEENT: Normocephalic. Atraumatic. There is no scleral icterus. The conjunctivae are clear. The oropharynx is clear. NECK: Supple. No lymphadenopathy was noted. LUNGS: Tachypneic. Good effort. There are diminished breath sounds throughout. The lungs are clear to auscultation bilaterally. HEART: Regular rate and rhythm. No ectopy was noted. ABDOMEN: Soft. Nontender. Nondistended. There are normal bowel sounds in all four quadrants. BILATERAL EXTREMITIES: There is no clubbing, cyanosis, or edema. NEUROLOGICAL: A limited exam was found to be intact. No focal abnormalities. SKIN: No rashes were noted. LABORATORY RESULTS: Labs were reviewed and are as documented in the record. Notable labs include a white blood cell count of 14.9 and a procalcitonin of less than 0.05. IMAGING: The chest x-ray done this admission revealed hyperinflation and flattened diaphragms. No infiltrates or effusions were noted. Consultation Report [address] [address] NAME: MAR LONGORIA : 57 STATUS : ADM IN [facility]#: [id number] AGE: 61 ADM/REG DATE : 12/05/16 MR#: [id number] REPORT SERV DATE: 12/09/16 DICTATED BY: LALY TORRES DATE: 12/09/16 REPORT STATUS : Draft TRANSCRIBED BY: SHARAD DATE: 12/09/16 ASSESSMENT AND PLAN: 1. Mr. Longoria is a 61-year-old black male, former smoker, with end-stage chronic obstructive pulmonary disease/hypoxia/emphysema and associated chronic respiratory failure, who was admitted with increased shortness of breath and hypoxia beyond his baseline after a session of pulmonary rehabilitation. He currently feels at baseline after treatment with bronchodilators, nebulized and inhaled steroids, and doxycycline. 2. As noted above, he is trilogy dependent for essentially 24 hours per day. He is followed by the Transplant Service at [facility] and is awaiting transplantation. 3. Recommend, continue his current inpatient medications, but would wean his steroids. 4. Would treat him with doxycycline for 10 days total. 5. Continue supplemental oxygen at a minimum flow rate of his basal 3.5 L/minute 24 hours per day. 6. Continue use of trilogy-patient is essentially trilogy dependent due to his underlying severe lung disease. 7. He should be discharged with his usual home medications including Symbicort, Spiriva, and 5 mg of prednisone daily along with rescue albuterol. 8. With regard to pulmonary rehabilitation, he should continue pulmonary rehabilitation as per the regimen outlined by [facility]. He is at high risk for readmission post outpatient pulmonary rehabilitation, so inpatient pulmonary rehabilitation is preferred. The patient is unsure regarding this and is awaiting input from his daughter who will be here later today. 9. He should follow up with his usual academic services coordinator, Dr. Jonathan Turner and the [facility] Lung Transplant Team after discharge. 10.As he is at baseline and has appropriate outpatient pulmonary physicians, he should be ready for discharge in the near future. Nothing further to add to his current therapeutic regimen. Thank you very much for this consultation. Please call again if needed. PS/MODL Laly Torres M.D. / [phone] CC: Arvin Hernandez M.D. NO PCP
--- NOTE | ~2016-12-05 | IDS ---
Interim Discharge Summary [facility] [address] [place]. [address] NAME: MAR VALDIVIA : 57 STATUS : ADM IN PAT#: [id number] AGE: 61 ADM/REG DATE : 12/05/16 MR#: [id number] REPORT SERV DATE: 12/08/16 DICTATED BY: GHULAM GREENBERG DATE: 12/08/16 REPORT STATUS : Draft TRANSCRIBED BY: MODL DATE: 12/08/16 ADMISSION DATE: 12/05/2016 DISCHARGE DATE: WORKING DIAGNOSES: 1. Chronic obstructive pulmonary disease exacerbation. 2. Baseline end-stage chronic obstructive pulmonary disease, follows with Dr. Turner, and he is being evaluated for lung transplant within the next one year. 3. Pulmonary hypertension. 4. Coronary artery disease with cardiac stent in the past. 5. Anxiety. 6. Obstructive sleep apnea. CONSULTANTS: None. PROCEDURES: None. HOSPITAL COURSE: This is a 61-year-old gentleman who was admitted to the hospital with initial diagnosis of COPD exacerbation with acute on chronic hypoxic respiratory failure. For details, please refer to my own H and P. The patient is normally on 3 to 4 L of oxygen at home, and since he has been in the hospital, he has been requiring around 5 L which was weaned down to 4 L and he tolerated it just fine today. The patient does have end-stage COPD, and he also uses CPAP even during the day at baseline. The patient does also have anxiety along with the shortness of breath which compounds the situation. The patient did well with small amount of benzos as well as some opiates. My plan was to discharge him home today, however, the patient did not have a ride to home and he just did not feel comfortable and wanted to stay another day. The patient may be ready for discharge to home tomorrow. NICOLE/SHARAD Ghulam Greenberg MD / [id number] CC: Ghulam Greenberg MD
--- NOTE | ~2016-12-05 | IDS ---
Interim Discharge Summary [facility] [address] [place]. [address] NAME: MAR LONGORIA : 57 STATUS : ADM IN PAT#: [id number] AGE: 61 ADM/REG DATE : 12/05/16 MR#: [id number] REPORT SERV DATE: 12/14/16 DICTATED BY: VALENTE HERNANDEZ DATE: 12/14/16 REPORT STATUS : Draft TRANSCRIBED BY: MODL DATE: 12/14/16 ADMISSION DATE: 12/05/2016 DISCHARGE DATE: CONSULTANTS: Laly Higgins M.D., Pulmonary. PROBLEM LIST: 1. Acute exacerbation of oxygen and trilogy dependent end-stage chronic obstructive pulmonary disease. 2. Pulmonary artery disease. 3. History of coronary artery disease with previous stent. 4. History of major depressive disorder. HISTORY: This gentleman has end-stage COPD and had presented to the emergency room at [facility], with increased shortness of breath. The patient is followed by local manager golf Dr. Turner and he also goes to [place] where he sees Dr. Mikhail Monteiro of the Lung Transplant Team. There are in preparation for his transplant, he was going to pulmonary rehab, but he got more and more short of breath, so came to the emergency room at [facility] because of this. He was noted to have increased work of breathing. Respirations in the mid 20s, heart rate 102 and was referred to our team for inpatient care. The patient's x-rays of the chest had revealed just severe COPD, no sign of infiltrate or congestive failure. His procalcitonin levels are normal. His B-natriuretic his 5.6. He is afebrile. He was placed on Solu-Medrol, azithromycin, and nebulizer treatments, and ended up needing to wear his trilogy BiPAP most of the time. We have been able to taper his steroids, he is on oral steroids down to 20 mg prednisone daily. His urine strep and Legionella antigens were negative. We switched him to just oral doxycycline which he has completed, he is getting Florastor with it. We have increased his BuSpar which is helped a lot. He is hardly asking for any Ativan at all. He gets short of breath with walking just a 5 to 10 feet. He lives with a brother, but the patient indicates that the brother is not able to help much around the house and does little more than turn the TV on and off. It is felt the patient needs inpatient pulmonary rehab and so we have consulted [facility] and waiting for insurance approval and is continuing to get physical therapy here. I called and spoke with his lung transplant physician Dr. Mikhail Monteiro at [place] ([phone]), indicated that they are still very interested in transplant for Mr. Longoria, but that he has to improve in his physical capacity to where he can walk 750 feet, and also there is a certain amount of fund raising that the patient has to do for his posttransplant followup care, so, he can stay in the area close to [place]. I have tried to reach the daughter multiple times by cell phone, but have only reached voice mail so far. Interim Discharge Summary [address] [place]. [address] NAME: MAR LONGORIA : 57 STATUS : ADM IN [facility]#: [id number] AGE: 61 ADM/REG DATE : 12/05/16 MR#: [id number] REPORT SERV DATE: 12/14/16 DICTATED BY: VALENTE HERNANDEZ DATE: 12/14/16 REPORT STATUS : Draft TRANSCRIBED BY: SHARAD DATE: 12/14/16 At this point in time, we are waiting to hear back from [facility] for pulmonary rehab. RSDwayne/WANDYL Valente Hernandez M.D. / [id number] CC: Domenica Abarca M.D. Michael T Czarnecki, M.D.
[~2016-12-05 15:21] MED LIST changes: +BUSPAR5 PO; +DSS PO; +FENESIN IR400 MG PO; +FLONASE NAS; +KDUR10 PO; +LEXAPRO20 PO; +SPIRIVA RESPIMAT INH; +VIBRATAB100 MG PO; +VITAMIN D2000 UNIT PO
[2016-12-05 15:38] LABS: BASOPHILS 0.3 %; BASOPHILS ABSOLUTE 0.02 10/3/uL (0.0-0.16); EOSINOPHILS 3.2 %; EOSINOPHILS ABSOLUTE 0.24 10/3/uL (0.0-0.53); HEMATOCRIT 43.9 % (40.0-51.0); HEMOGLOBIN 14.5 g/dL (13.6-17.8); IMMATURE GRANULOCYTES 0.1 %; IMMATURE GRANULOCYTES ABSOLUTE 0.01 10/3/uL (0.0-0.11); LYMPHOCYTES 28.7 %; LYMPHOCYTES ABSOLUTE 2.13 10/3/uL (0.67-4.30); MANUAL DIFF NO %; MEAN CORPUSCULAR HEMOGLOB 30.1 pg (26.0-34.0); MEAN CORPUSCULAR VOLUME 91.1 fL (80-100); MEAN PLATELET VOLUME 9.2 fL (9.2-13.0); MONOCYTES 8.6 %; MONOCYTES ABSOLUTE 0.64 10/3/uL (0.21-1.20); NEUTROPHILS 59.1 %; NEUTROPHILS ABSOLUTE 4.37 10/3/uL (2.02-8.40); PLATELET COUNT 267 10/3/uL (150-400); RBC DISTRIBUTION WIDTH 12.1 % (12.0-16.0); RED CELL COUNT 4.82 10/6/uL (4.7-6.1); WHITE BLOOD CELLS 7.4 10/3/uL (4.5-10.5)
[2016-12-05 15:43] LABS: PARTIAL THROMBO TIME 30.7 SEC (22.5-37.2); PROTIME (NOT ORD) 13.4 SEC (12.0-14.5)
[2016-12-05 15:54] LABS: BUN (BLOOD UREA NITROGEN) 8 MG/DL (6-23); CALCIUM, SERUM 8.7 MG/DL (8.5-10.4); CHEST PAIN PROFILE TAT 0 Hrs 20 Mins; CHLORIDE, SERUM 107 MMOL/L (96-112); CO2 (CARBON DIOXIDE) 31 MMOL/L (24-34); CREATININE 0.87 MG/DL (0.70-1.30); GFR AFRICAN AMERICAN 109 ML/MIN (>=60); GFR NON AFRICAN AMERICAN 94 ML/MIN (>=60); GLUCOSE, SERUM 83 MG/DL (60-99); SODIUM, SERUM 144 MMOL/L (135-148); TROPONIN I <0.02 NG/ML (<0.05)
[2016-12-05] MEDS ORDERED: FLONASE NAS (16:25)
[2016-12-05] MEDS ORDERED: Z-PAK PO (16:26)
[2016-12-05] MEDS ORDERED: ATROVENTUD INH (16:27)
[2016-12-05] MEDS ORDERED: PROAIR HFA INH (16:28)
[2016-12-05] MEDS ORDERED: SPIRIVA INH (16:29)
[2016-12-05] MEDS ORDERED: SYMBICORT 160/41 INH INH (16:29)
[2016-12-05] MEDS ORDERED: KLOR-CON 1010 MEQ PO (16:30)
[2016-12-05] MEDS ORDERED: DEMA10T PO (16:30)
[2016-12-05] MEDS ORDERED: COREG3 PO (16:30)
[2016-12-05] MEDS ORDERED: PRILOSEC40 MG PO (16:31)
[2016-12-05] MEDS ORDERED: MUCINEX600 MG PO (16:31)
[2016-12-05] MEDS ORDERED: P5 PO (16:32)
[2016-12-05] MEDS ORDERED: BUSPAR10 PO (16:33)
[2016-12-05] MEDS ORDERED: LEXAPRO20 PO (16:36)
[2016-12-05] MEDS ORDERED: ASAB PO (16:37)
[2016-12-05] MEDS ORDERED: ZYRTEC ALLGY10 MG PO (16:37)
[2016-12-05] MEDS ORDERED: GAVISCO2 PO (16:38)
[2016-12-05] MEDS ORDERED: VITAMIN B-12 PO (16:39)
[2016-12-05 18:00] LABS: ALLENS TEST Pos; BE (BASE EXCESS) 0.4 MEQ/L (0 +/- 2.5); CARBOXYHEMOGLOBIN 1.4 % (0-3); DEVICE NC; HCO3 (ACTUAL BICARBONATE) 26.2 MEQ/L (23-27); HEMOBLOGIN CONTENT 14.8 G/DL (14-18); INSTRUMENT SERIAL # 8087; METHEMOGLOBIN 0.4 % (0-3); OPERATOR ID 14335; PCO2 (CO2 TENSION) 47 MMHG (35-45); PO2 (O2 TENSION) 98 MMHG (79-93); SAMPLE Arterial; pH 7.37 (7.37-7.43)
[2016-12-06 01:05] LABS: BASOPHILS 0 %; EOSINOPHILS 0 %; HEMATOCRIT 45.4 % (40.0-51.0); HEMOGLOBIN 15.2 g/dL (13.6-17.8); IMMATURE GRANULOCYTES 0.1 %; IMMATURE GRANULOCYTES ABSOLUTE 0.01 10/3/uL (0.0-0.11); LYMPHOCYTES 10.4 %; LYMPHOCYTES ABSOLUTE 0.73 10/3/uL (0.67-4.30); MEAN CORPUS HGB CONC 33.5 g/dL (32.0-36.0); MEAN CORPUSCULAR HEMOGLOB 30.5 pg (26.0-34.0); MEAN CORPUSCULAR VOLUME 91.2 fL (80-100); MEAN PLATELET VOLUME 9.3 fL (9.2-13.0); MONOCYTES 0.7 %; MONOCYTES ABSOLUTE 0.05 10/3/uL (0.21-1.20); NEUTROPHILS 88.8 %; NEUTROPHILS ABSOLUTE 6.26 10/3/uL (2.02-8.40); PLATELET COUNT 312 10/3/uL (150-400); RBC DISTRIBUTION WIDTH 11.9 % (12.0-16.0); RED CELL COUNT 4.98 10/6/uL (4.7-6.1); WHITE BLOOD CELLS 7.1 10/3/uL (4.5-10.5)
[2016-12-06 01:08] LABS: MANUAL DIFF NO %
[2016-12-06 01:20] LABS: CHLORIDE, SERUM 108 MMOL/L (96-112); CO2 (CARBON DIOXIDE) 27 MMOL/L (24-34); CREATININE 0.97 MG/DL (0.70-1.30); GFR AFRICAN AMERICAN 98 ML/MIN (>=60); GFR NON AFRICAN AMERICAN 85 ML/MIN (>=60); POTASSIUM, SERUM 4.6 MMOL/L (3.5-5.3); SODIUM, SERUM 142 MMOL/L (135-148); TROPONIN I <0.02 NG/ML (<0.05)
[2016-12-06 01:23] LABS: BUN (BLOOD UREA NITROGEN) 14 MG/DL (6-23); GLUCOSE, SERUM 140 MG/DL (60-99)
[2016-12-08] MEDS ORDERED: ATV.5 PO (12:02)
[2016-12-08] MEDS ORDERED: NORCO1 TA1 PO (12:03)
[2016-12-08] MEDS ORDERED: ZITHROMAX500 MG PO (12:04)
[2016-12-08] MEDS ORDERED: P20 PO (12:04)
[2016-12-09 05:03] LABS: BASOPHILS 0 %; EOSINOPHILS 0 %; HEMOGLOBIN 13.6 g/dL (13.6-17.8); IMMATURE GRANULOCYTES 0.5 %; IMMATURE GRANULOCYTES ABSOLUTE 0.08 10/3/uL (0.0-0.11); LYMPHOCYTES 5.1 %; LYMPHOCYTES ABSOLUTE 0.76 10/3/uL (0.67-4.30); MEAN CORPUS HGB CONC 33.4 g/dL (32.0-36.0); MEAN CORPUSCULAR HEMOGLOB 30.2 pg (26.0-34.0); MEAN CORPUSCULAR VOLUME 90.4 fL (80-100); MEAN PLATELET VOLUME 9.3 fL (9.2-13.0); MONOCYTES 3.8 %; MONOCYTES ABSOLUTE 0.57 10/3/uL (0.21-1.20); NEUTROPHILS 90.6 %; NEUTROPHILS ABSOLUTE 13.49 10/3/uL (2.02-8.40); PLATELET COUNT 252 10/3/uL (150-400); RBC DISTRIBUTION WIDTH 11.8 % (12.0-16.0)
[2016-12-09 05:05] LABS: HEMATOCRIT 40.7 % (40.0-51.0); MANUAL DIFF NO %; WHITE BLOOD CELLS 14.9 10/3/uL (4.5-10.5)
[2016-12-09 05:20] LABS: CALCIUM, SERUM 8.7 MG/DL (8.5-10.4); CHLORIDE, SERUM 103 MMOL/L (96-112); CREATININE 0.91 MG/DL (0.70-1.30); GFR AFRICAN AMERICAN 106 ML/MIN (>=60); GFR NON AFRICAN AMERICAN 91 ML/MIN (>=60); POTASSIUM, SERUM 4.2 MMOL/L (3.5-5.3); SODIUM, SERUM 138 MMOL/L (135-148)
[2016-12-09 05:21] LABS: BUN (BLOOD UREA NITROGEN) 23 MG/DL (6-23); CO2 (CARBON DIOXIDE) 33 MMOL/L (24-34); GLUCOSE, SERUM 111 MG/DL (60-99)
[2016-12-09 12:23] LABS: PROCALCITONIN <0.05 ng/mL (<0.5)
[2016-12-10 05:42] LABS: BASOPHILS 0 %; EOSINOPHILS 0 %; HEMATOCRIT 41.2 % (40.0-51.0); HEMOGLOBIN 13.9 g/dL (13.6-17.8); IMMATURE GRANULOCYTES 0.3 %; IMMATURE GRANULOCYTES ABSOLUTE 0.03 10/3/uL (0.0-0.11); LYMPHOCYTES 7.2 %; MEAN CORPUS HGB CONC 33.7 g/dL (32.0-36.0); MEAN CORPUSCULAR HEMOGLOB 30.7 pg (26.0-34.0); MEAN CORPUSCULAR VOLUME 90.9 fL (80-100); MEAN PLATELET VOLUME 9.4 fL (9.2-13.0); MONOCYTES ABSOLUTE 0.67 10/3/uL (0.21-1.20); NEUTROPHILS 86.5 %; NEUTROPHILS ABSOLUTE 9.61 10/3/uL (2.02-8.40); PLATELET COUNT 259 10/3/uL (150-400); RBC DISTRIBUTION WIDTH 11.7 % (12.0-16.0); RED CELL COUNT 4.53 10/6/uL (4.7-6.1); WHITE BLOOD CELLS 11.1 10/3/uL (4.5-10.5)
[2016-12-10 05:44] LABS: MANUAL DIFF NO %
[2016-12-12 05:48] LABS: BASOPHILS 0 %; EOSINOPHILS 1.3 %; EOSINOPHILS ABSOLUTE 0.14 10/3/uL (0.0-0.53); HEMATOCRIT 42.3 % (40.0-51.0); HEMOGLOBIN 13.7 g/dL (13.6-17.8); IMMATURE GRANULOCYTES 0.7 %; IMMATURE GRANULOCYTES ABSOLUTE 0.08 10/3/uL (0.0-0.11); LYMPHOCYTES 21.7 %; LYMPHOCYTES ABSOLUTE 2.35 10/3/uL (0.67-4.30); MEAN CORPUS HGB CONC 32.4 g/dL (32.0-36.0); MEAN CORPUSCULAR HEMOGLOB 29.5 pg (26.0-34.0); MEAN CORPUSCULAR VOLUME 91.2 fL (80-100); MEAN PLATELET VOLUME 9.2 fL (9.2-13.0); MONOCYTES 10.4 %; MONOCYTES ABSOLUTE 1.12 10/3/uL (0.21-1.20); NEUTROPHILS 65.9 %; NEUTROPHILS ABSOLUTE 7.13 10/3/uL (2.02-8.40); PLATELET COUNT 263 10/3/uL (150-400); RED CELL COUNT 4.64 10/6/uL (4.7-6.1); WHITE BLOOD CELLS 10.8 10/3/uL (4.5-10.5)
[2016-12-12 05:49] LABS: MANUAL DIFF NO %
[2016-12-12 05:51] LABS: BUN (BLOOD UREA NITROGEN) 22 MG/DL (6-23); CALCIUM, SERUM 8.3 MG/DL (8.5-10.4); CHLORIDE, SERUM 100 MMOL/L (96-112); CREATININE 0.91 MG/DL (0.70-1.30); GFR AFRICAN AMERICAN 106 ML/MIN (>=60); GFR NON AFRICAN AMERICAN 91 ML/MIN (>=60); POTASSIUM, SERUM 3.8 MMOL/L (3.5-5.3); SODIUM, SERUM 141 MMOL/L (135-148)
[2016-12-12 05:52] LABS: CO2 (CARBON DIOXIDE) 38 MMOL/L (24-34); GLUCOSE, SERUM 60 MG/DL (60-99)
[2017-01-15] MEDS ORDERED: ASAB PO (03:07)
[2017-01-15] MEDS ORDERED: COREG3 PO (03:10)
[2017-01-15] MEDS ORDERED: LEXAPRO20 PEG (03:10)
[2017-01-15] MEDS ORDERED: SILTUSSIN100 MG/5 M PO (03:11)
[2017-01-15] MEDS ORDERED: ZYRTEC ALLGY10 MG PO (03:11)
[2017-01-15] MEDS ORDERED: FLORASTOR250 MG PO (03:12)
[2017-01-15] MEDS ORDERED: K-TABS10 MEQ PO (03:12)
[2017-01-15] MEDS ORDERED: PROTONIX PO (03:12)
[2017-01-15] MEDS ORDERED: MIRALAX POWDER1 PKT PO (03:12)
[2017-01-15] MEDS ORDERED: DEMA10T PO (03:13)
[2017-01-15] MEDS ORDERED: P10 PO (03:13)
[2017-01-15] MEDS ORDERED: FLONASE NAS (03:13)
[2017-01-15] MEDS ORDERED: CYANO1000T PO (03:13)
[2017-01-15] MEDS ORDERED: MULTIVIT/MIN PO (03:14)
[2017-01-15] MEDS ORDERED: SPIRIVA INH (03:15)
[2017-01-15] MEDS ORDERED: LEVAQUIN750 MG PO (03:15)
[2017-01-15] MEDS ORDERED: DUONEB INH (03:16)
[2017-01-15] MEDS ORDERED: DULERA 200 MCG/13 GM INH (03:16)
[2017-01-15] MEDS ORDERED: NASACORTAQ NAS (03:20)
== END 2016-12-19 16:57 | DRG 189 ==
LOC: ER 15:21 → 6NO 16:54
PROVIDERS: Emergency Medicine; Hospitalist; Internal Medicine
DX: J96.21 Acute and chronic respiratory failure with hypoxia (principal); I27.2 Other secondary pulmonary hypertension; Z99.81 Dependence on supplemental oxygen; J44.1 Chronic obstructive pulmonary disease with (acute) exacerbation; I25.10 Atherosclerotic heart disease of native coronary artery without angina pectoris; I10 Essential (primary) hypertension; G47.33 Obstructive sleep apnea (adult) (pediatric); F41.9 Anxiety disorder, unspecified; F32.9 Major depressive disorder, single episode, unspecified; E78.5 Hyperlipidemia, unspecified; K59.00 Constipation, unspecified; M25.551 Pain in right hip; Z91.09 Other allergy status, other than to drugs and biological substances; Z90.79 Acquired absence of other genital organ(s); Z57.5 Occupational exposure to toxic agents in other industries; Z88.3 Allergy status to other anti-infective agents; Z79.52 Long term (current) use of systemic steroids; Z87.891 Personal history of nicotine dependence; Z95.5 Presence of coronary angioplasty implant and graft
CPT/HCPCS: 36600; 71010; 71020; 80048; 82805; 83735; 83880; 84145; 84484; 85025; 85610; 85730; 87449; 93005; 94640; 96374; 97116-GP; 97161-GP; 97530-GP; 99291; A9270-GY; J0456; J2920; J2930